=== PATIENT | female | born 1950 | race Caucasian/White ===

== ENCOUNTER 2025-01-13 08:43 | Outpatient (AMB) | payer OTHER, MEDICAID, SELFPAY ==
[2025-01-13 08:59] VITALS: BP 156/74; PULSE 72; RESP 18; TEMP 36.1; O2SAT 98; BMI 22.9
--- NOTE | 2025-01-13 08:59 | ORTHONT_ITS ---
Vital signs 01/13/25 08:59 Height 1.5 m Height Method Measured Weight 51.483 kg Weight Measurement Method Standing Scale BMI 22.9 BP 156/74 H Blood Pressure Source Automatic Cuff Blood Pressure Location Right Upper Arm Position Sitting Respiration 18 Pulse 72 Pulse Source Monitor Temp 97.0 F Temp Source Temporal Artery Scan Pulse Oximetry (%) 98 Oxygen Delivery Method Room Air Med/Allergies Allergies & Medications Allergies ibuprofen Allergy (Intermediate, Verified 01/13/25 09:00) SWELLING naproxen (From Aleve) Allergy (Intermediate, Verified 01/13/25 09:00) SWELLING CODONE Allergy (Intermediate, Uncoded 01/13/25 09:00) SWELLING Medication Reconciliation folic acid 1 mg tablet 1 mg PO QDAY 01/13/25 [History Confirmed 01/13/25] lisinopril 20 mg tablet 20 mg PO QDAY 01/13/25 [History Confirmed 01/13/25] vitamin E acetate 134 mg (200 unit) capsule 134 mg PO QDAY 01/13/25 [History Confirmed 01/13/25] Exam Exam Breathing is nonlabored. Patient has a normal mood and affect. Bilateral extremities were evaluated and demonstrates sensation intact to light touch. Palpable pedal pulses are present. No significant edema is present. Bilateral hips were examined. The patient has no pain with log roll of the hips. Internal rotation to 30 degrees and external rotation to 30 degrees is painless. Negative FADIR. Left knee was examined today. The left knee is in reasonable alignment. Range of motion from 0-120 degrees. Knee is stable to varus and valgus as well as AP translation with <5mm. Patient has a negative McMurrays. There is no pain with patellofemoral compression and no crepitus noted. The knee is nontender to palpation. The right knee was also examined. The right knee is in varus alignment. Range of motion from 0-115 degrees. Knee is stable to varus and valgus as well as AP translation with <5mm. Patient has a negative McMurrays. There is no pain with patellofemoral compression and no crepitus noted. The knee is tender to palpation medially Assessment and Plan Problem List (1) Arthritis of knee: Status: Acute Plan: Patient is a 74-year-old female with right knee pain and right knee arthritis. We discussed nonoperative options. I would like to see her x-rays to see how bad it is. She is functioning quite well. We will see her back after she obtains new x-rays of her gets a copy of her old boards Advanced Care Planning Discussion Advance care planning discussed with:: patient Office Procedures GNS Level of Care Nursing/Assessment Patient Status: Initial/New Patient Nursing Assessment/Reassesment: Medication Reconciliation, Update PMH in EMR and Vital Signs Coordination of Care: Complex Care and Chronic Disease 1-5, Education Complex Pt/Fam, Consent,records obtained, informed consent, Results/Orders obtained and Staff clarify orders New Patient Charge New Patient Point Assignment: 1094 New Patient Point Charge: NON DESTRUCTIVE TESTING SCIENTIST Level 3 ([id number]) MA Intake Visit Data Collection New Patient or Established: New Patient (never been to [facility]) Reason for Visit:: RIGHT KNEE PAIN Seen by Clinical Staff ONLY (RN/MA): No Verbal consent obtained for Telemed visit?: No Community Liaison Required: No PCP or OBGYN visit in last 3 months: Yes Hx Now: No Do You Feel Safe at Home: Yes Authorities Contacted: N/A Questionairres Past Medical History Past Medical History Have you ever been diagnosed with any of the following: Cardiology Problems Hypertension: Yes Respiratory Problems Smoking: No Smoking Cessation Counseling: No Smoking Exposure: No Tobacco Use: No Subjective Visit Visit for: new patient and knee Immunization / Flu Flu Vaccine in the Last 12 Months: Yes Date of most recent flu vaccination: 09/12/24 Flu Vaccine Exclusion Criteria: Already Received History of Present Illness Chief complaint: RIGHT KNEE PAIN Date of injury / onset of symptoms: 10/07/24 Julianna is a pleasant 74-year-old female with right knee pain and right knee arthritis. She unfortunately does not have x-rays with her. She has a report that demonstrates mild joint space narrowing. She still functioning well. Personal History Occupation: RETIRED Red flag PMH: none BMI Counceling provided: No Pain Pain level (0-10): 3 Pain duration: COMES AND GOES Pain location: inside (medial), outside (lateral) and anterior Pain quality: dull and aching Pain timing: increases with activity Associated signs & symptoms: none Ambulatory data Ambulatory device: none Treatments Number of previous injections: 1 Improvement with previous injections: No Improvement with PT: No Improvement with NSAIDS: yes (TYLENOL, IBUPROFEN) Review of Systems Review of Systems: All systems negative unless otherwise noted in HPI.
== END 2025-01-13 09:26 | disposition home or self-care (01) ==
PROVIDERS: PCP Physician Assistant Medical; Referring Provider Physician Assistant Medical; Supervising Provider Orthopaedic Surgery Adult Reconstructive Orthopaedic Surgery; Visit Provider Orthopaedic Surgery Adult Reconstructive Orthopaedic Surgery
DX: M17.11 Unilateral primary osteoarthritis, right knee (principal)
CPT/HCPCS: 99203; G0463

== ENCOUNTER 2025-02-03 10:15 | Outpatient (AMB) | payer OTHER, MEDICAID, SELFPAY ==
--- NOTE | 2025-02-03 10:33 | PD.ORTHCLVIS ---
Vital signs 02/03/25 10:42 Height 1.5 m Height Method Stated Weight 50.859 kg Weight Measurement Method Standing Scale BMI 22.6 BP 175/90 H Blood Pressure Source Automatic Cuff Blood Pressure Location Left Upper Arm Position Sitting Respiration 18 Pulse 75 Pulse Source Monitor Temp 97.9 F Temp Source Temporal Artery Scan Pulse Oximetry (%) 97 Oxygen Delivery Method Room Air Med/Allergies Allergies & Medications Allergies ibuprofen Allergy (Intermediate, Verified 02/03/25 10:43) SWELLING naproxen (From Aleve) Allergy (Intermediate, Verified 02/03/25 10:43) SWELLING CODONE Allergy (Intermediate, Uncoded 02/03/25 10:43) SWELLING Medication Reconciliation folic acid 1 mg tablet 1 mg PO QDAY 01/13/25 [History Confirmed 02/03/25] lisinopril 20 mg tablet 20 mg PO QDAY 01/13/25 [History Confirmed 02/03/25] vitamin E acetate 134 mg (200 unit) capsule 134 mg PO QDAY 01/13/25 [History Confirmed 02/03/25] Exam Exam Breathing is nonlabored. Patient has a normal mood and affect. Bilateral extremities were evaluated and demonstrates sensation intact to light touch. Palpable pedal pulses are present. No significant edema is present. Bilateral hips were examined. The patient has no pain with log roll of the hips. Internal rotation to 30 degrees and external rotation to 30 degrees is painless. Negative FADIR. Left knee was examined today. The left knee is in reasonable alignment. Range of motion from 0-120 degrees. Knee is stable to varus and valgus as well as AP translation with <5mm. Patient has a negative McMurrays. There is no pain with patellofemoral compression and no crepitus noted. The knee is nontender to palpation. The right knee was also examined. The right knee is in varus alignment. Range of motion from 0-115 degrees. Knee is stable to varus and valgus as well as AP translation with <5mm. Patient has a negative McMurrays. There is no pain with patellofemoral compression and no crepitus noted. The knee is tender to palpation medially X-rays reveal health and imaging reviewed by me. These are weightbearing x-rays. I see mild arthritis. Assessment and Plan Problem List (1) Arthritis of knee: Status: Acute Plan: Patient is a 74-year-old female with right knee pain and right knee arthritis. We discussed nonoperative options. She cannot get anti-inflammatories due to angioedema when she takes it. We thus will do a cortisone injection today. We recommend continue conservative treatment given the mild severity Recommend knee cortisone injection as patient would like to proceed with conservative treatment at this time. The risks and benefits of the procedure were reviewed with the patient and patient gave verbal consent to continue with the procedure. Procedure: performed by Dr. Tucker Using sterile technique the Right knee was thoroughly prepped with alcohol, and approximately 1 cc of Kenalog 40 mg/mL and 4 cc of 1% lidocaine was injected without resistance into the medial tibial femoral joint space. The patient tolerated the procedure. Advanced Care Planning Discussion Advance care planning discussed with:: patient and child Office Procedures GNS Level of Care Nursing/Assessment Patient Status: Established Patient Nursing Assessment/Reassesment: Medication Reconciliation, Update PMH in EMR and Vital Signs Coordination of Care: Complex Care and Chronic Disease 1-5, Education Complex Pt/Fam, Consent,records obtained, informed consent, Results/Orders obtained and Staff clarify orders Established Patient Charge Established Patient Point Assignment: 95 Established Patient Point Charge: EP Level 3 (80-115) Surgical Proc/IM SQ injection Major Surgical Procedure: Yes (KNEE INJECTION) Medication Given Medication Given Medication Given: Yes Documented Dose Given: 4 Route: Infiitration Medication Given Medication Given Medication Given: Yes Documented Dose Given: 1 Route: Infiitration Office Meds Xylocaine 10 mg/mL (1 %) injection solution Performing Provider: Garett Tucker MD Performing Location: [facility] Administered by: Garett Tucker MD on 02/03/25 10:46 Dose Route Admin Location Dispensed Lot Number Expiration Date [facility] [employer] 20 mL Infiltration 20 mL [id number] 03/11/28 97701-642-39 [facility] triamcinolone acetonide 40 mg/mL suspension for injection Performing Provider: Garett Tucker MD Performing Location: [facility] Administered by: Garett Tucker MD on 02/03/25 10:46 Dose Route Admin Location Dispensed Lot Number Expiration Date [facility] [employer] 40 mg intra-articular KNEE 1 mL [id number] 09/10/26 2687-6514-63 TEVA PARENTERAL MA Intake Visit Data Collection New Patient or Established: Established Patient (seen at [facility] within 3 years) Reason for Visit:: XRAY RESULTS/KNEE INJECTION Seen by Clinical Staff ONLY (RN/MA): No Purification Operator Required: No PCP or OBGYN visit in last 3 months: Yes Hx Now: No Do You Feel Safe at Home: Yes Authorities Contacted: N/A Questionairres Past Medical History Past Medical History Have you ever been diagnosed with any of the following: Cardiology Problems Hypertension: Yes Respiratory Problems Smoking: No Smoking Cessation Counseling: No Smoking Exposure: No Tobacco Use: No Subjective Visit Visit for: follow up visit, knee, x-rays (RESULTS) and injections Immunization / Flu Flu Vaccine in the Last 12 Months: Yes Date of most recent flu vaccination: 09/12/24 Flu Vaccine Exclusion Criteria: Already Received History of Present Illness Chief complaint: RIGHT KNEE PAIN Date of injury / onset of symptoms: 10/07/24 Julianna is a pleasant 74-year-old female with right knee pain and right knee arthritis. She unfortunately does not have x-rays with her. She has a report that demonstrates mild joint space narrowing. She still functioning well. Personal History Occupation: RETIRED Red flag PMH: none BMI Counceling provided: No Pain Pain level (0-10): 5 Pain duration: COMES AND GOES Pain location: inside (medial), outside (lateral) and anterior Pain quality: dull and aching Pain timing: increases with activity and stairs Associated signs & symptoms: none Ambulatory data Ambulatory device: none Treatments Number of previous injections: 1 Improvement with previous injections: No Improvement with PT: No Improvement with NSAIDS: yes Review of Systems Review of Systems: All systems negative unless otherwise noted in HPI.
[2025-02-03 10:42] VITALS: BP 175/90; PULSE 75; RESP 18; TEMP 36.6; O2SAT 97; BMI 22.6
== END 2025-02-03 10:51 | disposition home or self-care (01) ==
PROVIDERS: PCP Physician Assistant Medical; Referring Provider Physician Assistant Medical; Supervising Provider Orthopaedic Surgery Adult Reconstructive Orthopaedic Surgery; Visit Provider Orthopaedic Surgery Adult Reconstructive Orthopaedic Surgery
DX: M17.11 Unilateral primary osteoarthritis, right knee (principal); M25.561 Pain in right knee; I10 Essential (primary) hypertension
CPT/HCPCS: 20610; 99213; J3301; J3490; G0463

== ENCOUNTER 2025-05-07 08:37 | Outpatient (AMB) | payer OTHER, MEDICAID, SELFPAY ==
--- NOTE | 2025-05-07 08:46 | PD.ORTHCLVIS ---
Vital signs 05/07/25 08:47 Height 1.5 m Height Method Stated Weight 54.148 kg Weight Measurement Method Standing Scale BMI 24.0 BP 145/81 H Blood Pressure Source Automatic Cuff Blood Pressure Location Right Upper Arm Position Sitting Respiration 18 Pulse 71 Pulse Source Monitor Temp 98.0 F Temp Source Temporal Artery Scan Pulse Oximetry (%) 96 Oxygen Delivery Method Room Air Med/Allergies Allergies & Medications Allergies ibuprofen Allergy (Intermediate, Verified 05/07/25 08:47) SWELLING naproxen (From Aleve) Allergy (Intermediate, Verified 05/07/25 08:47) SWELLING CODONE Allergy (Intermediate, Uncoded 05/07/25 08:47) SWELLING Medication Reconciliation folic acid 1 mg tablet 1 mg PO QDAY 01/13/25 [History Confirmed 05/07/25] lisinopril 20 mg tablet 20 mg PO QDAY 01/13/25 [History Confirmed 05/07/25] vitamin E acetate 134 mg (200 unit) capsule 134 mg PO QDAY 01/13/25 [History Confirmed 05/07/25] Exam Exam Breathing is nonlabored. Patient has a normal mood and affect. Bilateral extremities were evaluated and demonstrates sensation intact to light touch. Palpable pedal pulses are present. No significant edema is present. Bilateral hips were examined. The patient has no pain with log roll of the hips. Internal rotation to 30 degrees and external rotation to 30 degrees is painless. Negative FADIR. Left knee was examined today. The left knee is in reasonable alignment. Range of motion from 0-120 degrees. Knee is stable to varus and valgus as well as AP translation with <5mm. Patient has a negative McMurrays. There is no pain with patellofemoral compression and no crepitus noted. The knee is nontender to palpation. The right knee was also examined. The right knee is in varus alignment. Range of motion from 0-115 degrees. Knee is stable to varus and valgus as well as AP translation with <5mm. Patient has a negative McMurrays. There is no pain with patellofemoral compression and no crepitus noted. The knee is tender to palpation medially weightbearing x-rays Demonstrate mild arthritis with relatively preserved joint spaces Assessment and Plan Problem List (1) Arthritis of knee: Status: Acute Plan: Patient is a 74-year-old female with right knee pain and right knee arthritis. We discussed nonoperative options. She cannot get anti-inflammatories due to angioedema when she takes it. We thus will do a cortisone injection today. We recommend continue conservative treatment given the mild severity Recommend knee cortisone injection as patient would like to proceed with conservative treatment at this time. The risks and benefits of the procedure were reviewed with the patient and patient gave verbal consent to continue with the procedure. Procedure: performed by Dr. Tucker Using sterile technique the Right knee was thoroughly prepped with alcohol, and approximately 1 cc of Kenalog 40 mg/mL and 4 cc of 1% lidocaine was injected without resistance into the medial tibial femoral joint space. The patient tolerated the procedure. Advanced Care Planning Discussion Advance care planning discussed with:: patient and child Office Procedures GNS Level of Care Nursing/Assessment Patient Status: Established Patient Nursing Assessment/Reassesment: Medication Reconciliation, Update PMH in EMR and Vital Signs Coordination of Care: Complex Care and Chronic Disease 1-5, Education Complex Pt/Fam, Consent,records obtained, informed consent, Results/Orders obtained and Staff clarify orders Established Patient Charge Established Patient Point Assignment: 95 Established Patient Point Charge: EP Level 3 (80-115) Surgical Proc/IM SQ injection Major Surgical Procedure: Yes (KNEE INJECTION ) Medication Given Medication Given Medication Given: Yes Documented Dose Given: 4 Route: Infiitration Medication Given Medication Given Medication Given: Yes Documented Dose Given: 1 Route: Infiitration Office Meds Xylocaine 10 mg/mL (1 %) injection solution Performing Provider: Garett Tucker MD Performing Location: [facility] Administered by: Garett Tucker MD on 05/07/25 09:38 Dose Route Admin Location Dispensed Lot Number Expiration Date [facility] [employer] Ad[employer] 20 mL Infiltration 20 mL [id number] [facility] triamcinolone acetonide 40 mg/mL suspension for injection Performing Provider: Garett Tucker MD Performing Location: [facility] Administered by: Garett Tucker MD on 05/07/25 09:38 Dose Route Admin Location Dispensed Lot Number Expiration Date [facility] [employer] 40 mg intra-articular KNEE 1 mL [id number] 11/12/26 14352-575-73 OMKAR LORD MA Intake Visit Data Collection New Patient or Established: Established Patient (seen at [facility] within 3 years) Reason for Visit:: 3 MONTH FOLLOW UP KNEE INJ Seen by Clinical Staff ONLY (RN/MA): No Verbal consent obtained for Telemed visit?: No Vending Machine Collector Required: No PCP or OBGYN visit in last 3 months: Yes Hx Now: No Do You Feel Safe at Home: Yes Authorities Contacted: N/A Questionairres Past Medical History Past Medical History Have you ever been diagnosed with any of the following: Cardiology Problems Hypertension: Yes Respiratory Problems Smoking: No Smoking Cessation Counseling: No Smoking Exposure: No Tobacco Use: No Subjective Visit Visit for: follow up visit, knee and injections Immunization / Flu Flu Vaccine in the Last 12 Months: No Date of most recent flu vaccination: 09/12/24 Flu Vaccine Exclusion Criteria: No Exclusion Criteria History of Present Illness Chief complaint: 3 MONTH KNEE INJECTION FOLLOW UP Date of injury / onset of symptoms: 10/07/24 Julianna is a pleasant 74-year-old female with right knee pain and right knee arthritis. She has mild arthritis on x-ray. She is still functioning well And had great relief with the last injection. Personal History Occupation: RETIRED Red flag PMH: none BMI Counceling provided: No Pain Pain level (0-10): 3 Pain duration: COMES AND GOES Pain location: inside (medial), outside (lateral) and anterior Pain quality: sharp, dull and aching Pain timing: increases with activity Associated signs & symptoms: none Ambulatory data Ambulatory device: none Treatments Number of previous injections: 1 Improvement with previous injections: Yes Improvement with PT: No Improvement with NSAIDS: no Review of Systems Review of Systems: All systems negative unless otherwise noted in HPI.
[2025-05-07 08:47] VITALS: BP 145/81; PULSE 71; RESP 18; TEMP 36.7; O2SAT 96; BMI 24.0
== END 2025-05-07 09:04 | disposition home or self-care (01) ==
PROVIDERS: PCP Physician Assistant Medical; Referring Provider Physician Assistant Medical; Supervising Provider Orthopaedic Surgery Adult Reconstructive Orthopaedic Surgery; Visit Provider Orthopaedic Surgery Adult Reconstructive Orthopaedic Surgery
DX: M17.11 Unilateral primary osteoarthritis, right knee (principal); M25.561 Pain in right knee; I10 Essential (primary) hypertension
CPT/HCPCS: 20610; 99213; J3301; J3490; G0463

== ENCOUNTER 2025-08-06 10:43 | Outpatient (AMB) | payer OTHER, MEDICAID, SELFPAY ==
--- NOTE | 2025-08-06 10:58 | ORTHONT_ITS ---
Vital signs 08/06/25 11:02 Height 1.5 m Height Method Measured Weight 53.581 kg Weight Measurement Method Standing Scale BMI 23.8 BP 153/67 H Blood Pressure Source Automatic Cuff Blood Pressure Location Left Upper Arm Position Sitting Respiration 16 Pulse 70 Pulse Source Monitor Temp 98.2 F Temp Source Temporal Artery Scan Pulse Oximetry (%) 98 Oxygen Delivery Method Room Air Med/Allergies Allergies & Medications Allergies ibuprofen Allergy (Intermediate, Verified 08/06/25 11:03) SWELLING naproxen (From Aleve) Allergy (Intermediate, Verified 08/06/25 11:03) SWELLING CODONE Allergy (Intermediate, Uncoded 08/06/25 11:03) SWELLING Medication Reconciliation folic acid 1 mg tablet 1 mg PO QDAY 01/13/25 [History Confirmed 08/06/25] lisinopril 20 mg tablet 20 mg PO QDAY 01/13/25 [History Confirmed 08/06/25] vitamin E acetate 134 mg (200 unit) capsule 134 mg PO QDAY 01/13/25 [History Confirmed 08/06/25] Exam Exam Breathing is nonlabored. Patient has a normal mood and affect. Bilateral extremities were evaluated and demonstrates sensation intact to light touch. Palpable pedal pulses are present. No significant edema is present. Bilateral hips were examined. The patient has no pain with log roll of the hips. Internal rotation to 30 degrees and external rotation to 30 degrees is painless. Negative FADIR. Left knee was examined today. The left knee is in reasonable alignment. Range of motion from 0-120 degrees. Knee is stable to varus and valgus as well as AP translation with <5mm. Patient has a negative McMurrays. There is no pain with patellofemoral compression and no crepitus noted. The knee is nontender to palpation. The right knee was also examined. The right knee is in varus alignment. Range of motion from 0-115 degrees. Knee is stable to varus and valgus as well as AP translation with <5mm. Patient has a negative McMurrays. There is no pain with patellofemoral compression and no crepitus noted. The knee is tender to palpation medially weightbearing x-rays Demonstrate mild arthritis with relatively preserved joint spaces Assessment and Plan Problem List (1) Arthritis of knee: Status: Acute Plan: Patient is a 74-year-old female with right knee pain and right knee arthritis. We discussed nonoperative options. She cannot get anti-inflammatories due to angioedema when she takes it. We thus will do a cortisone injection today. We recommend continue conservative treatment given the mild severity Recommend knee cortisone injection as patient would like to proceed with conservative treatment at this time. The risks and benefits of the procedure were reviewed with the patient and patient gave verbal consent to continue with the procedure. Procedure: performed by Dr. Tucker Using sterile technique the Right knee was thoroughly prepped with alcohol, and approximately 1 cc of Depo-Medrol 80mg/mL and 4 cc of 0.2% ropivacaine was injected without resistance into the medial tibial femoral joint space. The patient tolerated the procedure. Advanced Care Planning Discussion Advance care planning discussed with:: patient and child Office Procedures GNS Level of Care Nursing/Assessment Patient Status: Established Patient Nursing Assessment/Reassesment: Medication Reconciliation, Update PMH in EMR and Vital Signs Coordination of Care: Education Complex Pt/Fam, Consent,records obtained, informed consent, Results/Orders obtained and Staff clarify orders Special Needs: Language special needs Established Patient Charge Established Patient Point Assignment: 70 Established Patient Point Charge: EP Level 3 (80-115) Surgical Proc/IM SQ injection Minor Surgical Procedure: Yes (KNEE INJECTION) Medication Given Medication Given Medication Given: Yes Documented Dose Given: 1 Route: Infiitration Medication Given Medication Given Medication Given: Yes Documented Dose Given: 4 Route: Infiitration Office Meds methylprednisolone acetate 80 mg/mL suspension for injection Performing Provider: Garett Tucker MD Performing Location: [facility] Administered by: Garett Tucker MD on 08/06/25 11:14 Dose Route Admin Location Dispensed Lot Number Expiration Date Pack age [facility] [employer] 80 mg intra-articular KNEE 1 mL [id number] 10/11/26 [address]-9 [id number] [employer] ropivacaine (PF) 2 mg/mL (0.2 %) injection solution Performing Provider: Garett Tucker MD Performing Location: [facility] Administered by: Garett Tucker MD on 08/06/25 11:14 Dose Route Admin Location Dispensed Lot Number Expiration Date Pack age [facility] Cl[employer] 20 mL Infiltration KNEE 20 mL [id number] 12/12/27 45205-643-26 [id number] [facility] Intake Visit Data Collection New Patient or Established: Established Patient (seen at [facility] within 3 years) Reason for Visit:: 3 MONTH FOLLOW UP KNEE INJ Seen by Clinical Staff ONLY (RN/BRANDON): No Verbal consent obtained for Telemed visit?: No Cdl A Driver Required: No PCP or OBGYN visit in last 3 months: Yes Hx Now: No Do You Feel Safe at Home: Yes Authorities Contacted: N/A Questionairres Past Medical History Past Medical History Have you ever been diagnosed with any of the following: Cardiology Problems Hypertension: Yes Respiratory Problems Smoking: No Smoking Cessation Counseling: No Smoking Exposure: No Tobacco Use: No Subjective Visit Visit for: follow up visit, knee and injections Immunization / Flu Flu Vaccine in the Last 12 Months: No Date of most recent flu vaccination: 09/12/24 Flu Vaccine Exclusion Criteria: No Exclusion Criteria History of Present Illness Chief complaint: 3 MONTH KNEE INJECTION FOLLOW UP Date of injury / onset of symptoms: 10/07/24 Julianna is a pleasant 74-year-old female with right knee pain and right knee arthritis. She has mild arthritis on x-ray. She is still functioning well And had great relief with the last injection. She would like a new injection today Personal History Occupation: RETIRED Red flag PMH: none BMI Counceling provided: No Pain Pain level (0-10): 3 Pain duration: COMES AND GOES Pain location: inside (medial), outside (lateral) and anterior Pain quality: sharp, dull and aching Pain timing: increases with activity Associated signs & symptoms: none Ambulatory data Ambulatory device: none Treatments Number of previous injections: 1 Improvement with previous injections: Yes Improvement with PT: No Improvement with NSAIDS: no Review of Systems Review of Systems: All systems negative unless otherwise noted in HPI.
[2025-08-06 11:02] VITALS: BP 153/67; PULSE 70; RESP 16; TEMP 36.8; O2SAT 98; BMI 23.8
== END 2025-08-06 11:13 | disposition home or self-care (01) ==
LOC: HODSRG 10:43
PROVIDERS: PCP Physician Assistant Medical; Referring Provider Physician Assistant Medical; Supervising Provider Orthopaedic Surgery Adult Reconstructive Orthopaedic Surgery; Visit Provider Orthopaedic Surgery Adult Reconstructive Orthopaedic Surgery
DX: M17.11 Unilateral primary osteoarthritis, right knee (principal); M25.561 Pain in right knee; I10 Essential (primary) hypertension
CPT/HCPCS: 20610; 99213; J1010; J2795; G0463

== ENCOUNTER 2025-11-10 10:23 | Outpatient (AMB) | payer OTHER, MEDICAID, SELFPAY ==
--- NOTE | 2025-11-10 10:49 | ORTHONT_ITS ---
Vital signs 11/10/25 10:50 Height 1.5 m Height Method Stated Weight 51.88 kg Weight Measurement Method Standing Scale BMI 23.0 BP 130/78 Blood Pressure Source Automatic Cuff Blood Pressure Location Left Upper Arm Position Sitting Respiration 18 Pulse 66 Pulse Source Monitor Temp 97.7 F Temp Source Temporal Artery Scan Pulse Oximetry (%) 98 Oxygen Delivery Method Room Air Med/Allergies Allergies & Medications Allergies ibuprofen Allergy (Intermediate, Verified 11/10/25 10:51) SWELLING naproxen (From Aleve) Allergy (Intermediate, Verified 11/10/25 10:51) SWELLING CODONE Allergy (Intermediate, Uncoded 11/10/25 10:51) SWELLING Medication Reconciliation folic acid 1 mg tablet 1 mg PO QDAY 01/13/25 [History Confirmed 11/10/25] lisinopril 20 mg tablet 20 mg PO QDAY 01/13/25 [History Confirmed 11/10/25] vitamin E acetate 134 mg (200 unit) capsule 134 mg PO QDAY 01/13/25 [History Confirmed 11/10/25] Exam Exam Breathing is nonlabored. Patient has a normal mood and affect. Bilateral extremities were evaluated and demonstrates sensation intact to light touch. Palpable pedal pulses are present. No significant edema is present. Bilateral hips were examined. The patient has no pain with log roll of the hips. Internal rotation to 30 degrees and external rotation to 30 degrees is painless. Negative FADIR. Left knee was examined today. The left knee is in reasonable alignment. Range of motion from 0-120 degrees. Knee is stable to varus and valgus as well as AP translation with <5mm. Patient has a negative McMurrays. There is no pain with patellofemoral compression and no crepitus noted. The knee is nontender to palpation. The right knee was also examined. The right knee is in varus alignment. Range of motion from 0-115 degrees. Knee is stable to varus and valgus as well as AP translation with <5mm. Patient has a negative McMurrays. There is no pain with patellofemoral compression and no crepitus noted. The knee is tender to palpation medially weightbearing x-rays Demonstrate mild arthritis with relatively preserved joint spaces Assessment and Plan Problem List (1) Arthritis of knee: Status: Acute Plan: Patient is a 74-year-old female with right knee pain and right knee arthritis. We discussed nonoperative options. She cannot get anti-inflammatories due to angioedema when she takes it. She has been doing well with cortisone injection s. Recommend knee cortisone injection as patient would like to proceed with conservative treatment at this time. The risks and benefits of the procedure were reviewed with the patient and patient gave verbal consent to continue with the procedure. Procedure: performed by Dr. Tucker Using sterile technique the Right knee was thoroughly prepped with alcohol, and approximately 1 cc of Depo-Medrol 80mg/mL and 4 cc of 0.2% ropivacaine was injected without resistance into the medial tibial femoral joint space. The patient tolerated the procedure. Advanced Care Planning Discussion Advance care planning discussed with:: patient and child Office Procedures GNS Level of Care Nursing/Assessment Patient Status: Established Patient Nursing Assessment/Reassesment: Medication Reconciliation, Update PMH in EMR and Vital Signs Coordination of Care: Complex Care and Chronic Disease 1-5, Education Complex Pt/Fam, Consent,records obtained, informed consent, Results/Orders obtained and Staff clarify orders Established Patient Charge Established Patient Point Assignment: 95 Established Patient Point Charge: EP Level 3 (80-115) Surgical Proc/IM SQ injection Minor Surgical Procedure: Yes (KNEE INJECTION) Medication Given Medication Given Medication Given: Yes Documented Dose Given: 1 Route: Infiitration Medication Given Medication Given Medication Given: Yes Documented Dose Given: 4 Route: Infiitration Office Meds methylprednisolone acetate 80 mg/mL suspension for injection Performing Provider: Garett Tucker MD Performing Location: [facility] Administered by: Garett Tucker MD on 11/10/25 11:39 Dose Route Admin Location Dispensed Lot Number Expiration Date Pack age [facility] [employer] 80 mg intra-articular 1 mL [id number] 07/11/27 [address]-4 [id number] [employer] ropivacaine (PF) 2 mg/mL (0.2 %) injection solution Performing Provider: Garett Tucker MD Performing Location: [facility] Administered by: Garett Tucker MD on 11/10/25 11:39 Dose Route Admin Location Dispensed Lot Number Expiration Date Pack age [facility] [employer] 20 mL Infiltration 20 mL [id number] 04/10/27 [id number] [facility] Intake Visit Data Collection New Patient or Established: Established Patient (seen at [facility] within 3 years) Reason for Visit:: 3 MONTH FOLLOW UP KNEE INJ Seen by Clinical Staff ONLY (RN/MA): No Verbal consent obtained for Telemed visit?: No Sailing Master Required: No PCP or OBGYN visit in last 3 months: Yes Hx Now: No Do You Feel Safe at Home: Yes Authorities Contacted: N/A Questionairres Past Medical History Past Medical History Have you ever been diagnosed with any of the following: Cardiology Problems Hypertension: Yes Respiratory Problems Smoking: No Smoking Cessation Counseling: No Smoking Exposure: No Tobacco Use: No Subjective Visit Visit for: follow up visit, knee and injections Immunization / Flu Flu Vaccine in the Last 12 Months: No Date of most recent flu vaccination: 09/12/24 Flu Vaccine Exclusion Criteria: No Exclusion Criteria History of Present Illness Chief complaint: 3 MONTH KNEE INJECTION FOLLOW UP Date of injury / onset of symptoms: 10/07/24 Julianna is a pleasant 74-year-old female with right knee pain and right knee arthritis. She has mild arthritis on x-ray. She is still functioning well And had great relief with the last injection. She would like a new injection today Personal History Occupation: RETIRED Red flag PMH: none BMI Counceling provided: No Pain Pain level (0-10): 3 Pain duration: COMES AND GOES Pain location: inside (medial), outside (lateral) and anterior Pain quality: sharp, dull and aching Pain timing: increases with activity Associated signs & symptoms: none Ambulatory data Ambulatory device: none Treatments Number of previous injections: 1 Improvement with previous injections: Yes Improvement with PT: No Improvement with NSAIDS: no Review of Systems Review of Systems: All systems negative unless otherwise noted in HPI.
[2025-11-10 10:50] VITALS: BP 130/78; PULSE 66; RESP 18; TEMP 36.5; O2SAT 98; BMI 23.0
== END 2025-11-10 11:07 | disposition home or self-care (01) ==
LOC: HODSRG 10:23
PROVIDERS: PCP Physician Assistant Medical; Referring Provider Physician Assistant Medical; Supervising Provider Orthopaedic Surgery Adult Reconstructive Orthopaedic Surgery; Visit Provider Orthopaedic Surgery Adult Reconstructive Orthopaedic Surgery
DX: M17.11 Unilateral primary osteoarthritis, right knee (principal); M25.561 Pain in right knee; I10 Essential (primary) hypertension
CPT/HCPCS: 20610; 99213; J1010; J2795; G0463